=== PATIENT | female | born 1970 | race Caucasian/White ===

== ENCOUNTER 2021-04-15 14:45 | Emergency (ER) | payer BC, SELFPAY ==
--- NOTE | ~2021-04-15 | XR_ITS ---
EXAMINATION: XR tibia fibula LT 2V DATE: 04/15/2021 15:18 INDICATION: Left lower leg injury and pain. TECHNIQUE: 2 views of left tibia and fibula on 4 radiographs were obtained. COMPARISON: None. FINDINGS: Bone alignment is normal. No fracture. There is mild tricompartmental osteoarthritis of the knee. No knee joint effusion. There is subcutaneous soft tissue swelling of anterior and lateral low er leg. IMPRESSION: 1. Mild left knee osteoarthritis. Reviewed, dictated and finalized at location A. [employer]
--- NOTE | 2021-04-15 14:48 | ED.LOWEXIN ---
HPI - Extremity Injury (Lower) General Chief Complaint: Extremity Injury, Lower Stated Complaint: Fall Injury/Left Leg Time Seen by Provider: 04/15/21 14:49 Source: patient, family and RN notes reviewed History of Present Illness HPI Narrative: Patient is a 51-year-old female who presents the urgent care with complaints of a contusion to the left lower leg. Patient states that she fell down the bleachers less than 1 hour ago. Patient states that she fell forward and hit the left leg. Denies of hitting her head or any loss of consciousness. Denies of any other injuries from the fall. Patient has not done anything for her pain prior to arrival. No other acute complaints. No acute distress noted. Patient read the plan of care. Some parts of this dictation were generated by voice recognition software and may contain typographical and/or grammatical inaccuracies. Related Data Home Medications Medication Instructions Recorded Confirmed No Home Medications 04/15/21 04/15/21 Allergies Allergy/AdvReac Type Severity Reaction Status Date / Time No Known Allergies Allergy Mild Unverified 04/13/14 18:04 Review of Systems Review of Systems: CONSTITUTIONAL: Denies fever, chills, or sweats. EYES: Denies visual changes, redness, or discharge. ENT: Denies rhinorrhea, congestion, sore throat, or otalgia. CARDIOVASCULAR: Denies chest pain, palpitations, or edema. RESPIRATORY: Denies cough or dyspnea. GASTROINTESTINAL: Denies abdominal pain, nausea, vomiting, or diarrhea. GENITOURINARY: Denies dysuria or hematuria. SKIN: Denies rash or itching. MUSCULOSKELETAL: Reports of moderate pain, swelling to the left lower leg NEUROLOGIC: Denies headache, numbness, or weakness. All other systems reviewed are negative, except as documented in HPI. PMFSH Comments At the time of my signature, I reviewed and agree with the nursing past medical, surgical, social, and family history. There is no relevant family history pertinent to the patient complaint. Exam Narrative: GENERAL: This is a well-nourished, well-developed patient, in no apparent distress. HEAD: normocephalic, atraumatic. EYES: PERRL. Sclera clear/white. Vision is grossly intact. EARS: External ears normal NOSE: External nose normal with no obvious nasal discharge, nares without redness, no rhinorrhea. THROAT: Mucous membranes moist NECK: Neck supple CARDIOVASCULAR: Regular rate and rhythm without murmurs, gallops, or rubs. RESPIRATORY: Clear to auscultation. Breath sounds equal bilaterally. No wheezes, rales, or rhonchi. SKIN: warm, intact with no suspicious lesions or rash, good texture and turgor. NEURO: awake, alert, and oriented to person, place and time. There were no obvious focal neurologic abnormalities. EXTREMITIES: 7 inch x 6 inch large ecchymotic contusion noted to the dorsal lateral aspect of the left lower leg/tibia. Positive strong left pedal pulse with cap refill less than 2 seconds. Course Vital Signs Vital signs: Vital Signs Temperature 98.6 F 04/15/21 14:56 Pulse Rate 78 04/15/21 14:56 Respiratory Rate 20 04/15/21 14:56 Blood Pressure 170/86 H 04/15/21 14:56 Pulse Oximetry 100 04/15/21 14:56 Temperature 98.6 F 04/15/21 14:56 Pulse Rate 78 04/15/21 14:56 Respiratory Rate 20 04/15/21 14:56 Blood Pressure 170/86 H 04/15/21 14:56 Pulse Oximetry 100 04/15/21 14:56 Reviewed-patient is informed that they may have pre-hypertension or hypertension based on a blood pressure reading in the department. I recommend the patient call the primary care provider listed on their discharge instructions or a physician of their choice this week to arrange follow-up for further evaluation of possible pre-hypertension or hypertension. MDM - Extremity Injury (Lower) MDM Narrative Medical decision making narrative: Reviewed x-ray results with the patient and spouse. Aware that x-ray was negative for tibial fracture. There is osteoarthritis in the
[2021-04-15 14:56] VITALS: BP 170/86; PULSE 78; RESP 20; TEMP 37; O2SAT 100
== END 2021-04-15 15:50 | disposition home or self-care (01) ==
PROVIDERS: Emergency Provider Nurse Practitioner Family
DX: S80.12XA Contusion of left lower leg, initial encounter (principal); W17.89XA Other fall from one level to another, initial encounter
CPT/HCPCS: 73590; 99203; G0463